=== PATIENT | male | born 1950 | race American Indian/Alaskan Native ===

== ENCOUNTER 2018-02-26 04:49 | Emergency (ER) | payer MEDICARE ==
[2018-02-26 07:49] LABS: Basophils % (Auto) 0.6 % (0.0-1.8); Eosinophils # (Auto) 0.2 K/mm3 (0.0-0.4); Eosinophils % (Auto) 2.8 % (0.0-4.3); Hematocrit 44.1 % (35.5-45.6); Hemoglobin 14.3 gm/dl (11.8-15.2); Lymphocytes # (Auto) 1.7 K/mm3 (1.2-5.4); Lymphocytes % (Auto) 28.6 % (13.4-35.0); Mean Corpuscular HGB Conc 32 % (32-34); Mean Corpuscular Hemoglobin 31 pg (28-32); Mean Corpuscular Volume 96 fl (84-94); Monocytes # (Auto) 0.7 K/mm3 (0.0-0.8); Monocytes % (Auto) 12.1 % (0.0-7.3); Platelet Count 219 K/mm3 (140-440); Red Blood Count 4.59 M/mm3 (3.65-5.03); Red Cell Distribution Width 15.2 % (13.2-15.2)
[2018-02-26 08:04] LABS: Alanine Aminotransferase 14 units/L (7-56); BUN/Creatinine Ratio 32; Blood Urea Nitrogen 29 mg/dL (9-20); Calcium 9.3 mg/dL (8.4-10.2); Hemolysis Index 17
--- NOTE | 2018-02-26 10:49 | Cat Scan Report ---
CT scan of head without IV contrast: History: Syncope and collapse. Findings Ventricles are normal in size and midline the patient. Periventricular areas of low attenuation. No evidence of acute ischemic, hemorrhage or mass. No extra-axial fluid collection. Mild volume loss at the Normals visualized sinuses and mastoid air cells. Impression: No acute intracranial abnormality. Small vessel ischemic changes. Mild volume loss.
[2018-02-26 11:34] LABS: Bilirubin,Urine NEG (Negative); Blood,Urine NEG (Negative); Color,Urine Yellow (Yellow); Mucus,Urine 3+ /HPF; Protein,Urine <15 mg/dL mg/dL (Negative)
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
[2018-02-26 12:16] VITALS: BP 122/76
== END 2018-02-26 12:31 | disposition home or self-care (01) ==
LOC: ED 04:49
DX: R55 Syncope and collapse (principal); R53.1 Weakness; F17.200 Nicotine dependence, unspecified, uncomplicated
CPT/HCPCS: 36415; 70450; 80053; 81001; 85025

== ENCOUNTER 2018-03-15 00:57 | Emergency (ER) | payer MEDICARE ==
[2018-03-15] MEDS ORDERED: MOTRIN PO ONE (07:34)
--- NOTE | 2018-03-15 08:26 | XRay Report ---
Right foot 3 views: History: Pain and swelling. Findings: Generalized osteopenia. No periosteal reaction or lytic lesion. No evidence of fracture. Deformed lateral sesamoid probably related to old injury. Impression: No definite acute findings.
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
[2018-03-15 09:19] LABS: Hematocrit 37.5 % (35.5-45.6); Hemoglobin 11.8 gm/dl (11.8-15.2); Mean Corpuscular HGB Conc 31 % (32-34); Mean Corpuscular Hemoglobin 31 pg (28-32); Mean Corpuscular Volume 98 fl (84-94); Platelet Count 140 K/mm3 (140-440); Red Blood Count 3.83 M/mm3 (3.65-5.03); Red Cell Distribution Width 15.8 % (13.2-15.2)
[2018-03-15 09:20] LABS: Basophils % (Auto) 0.7 % (0.0-1.8); Eosinophils # (Auto) 0.3 K/mm3 (0.0-0.4); Eosinophils % (Auto) 5.3 % (0.0-4.3); Lymphocytes # (Auto) 1.3 K/mm3 (1.2-5.4); Lymphocytes % (Auto) 26.5 % (13.4-35.0); Monocytes # (Auto) 0.5 K/mm3 (0.0-0.8); Monocytes % (Auto) 11.4 % (0.0-7.3)
[2018-03-15 10:32] LABS: BUN/Creatinine Ratio 20; Blood Urea Nitrogen 14 mg/dL (9-20); Calcium 8.3 mg/dL (8.4-10.2); Hemolysis Index 27
[2018-03-15 10:59] VITALS: BP 156/76
== END 2018-03-15 10:59 | disposition home or self-care (01) ==
LOC: ED 00:57
DX: B35.3 Tinea pedis (principal); F17.200 Nicotine dependence, unspecified, uncomplicated
CPT/HCPCS: 36415; 80048; 83880; 85025; 99284

== ENCOUNTER 2018-05-10 16:07 | Emergency (ER) | payer MEDICARE ==
[2018-05-10 16:25] VITALS: BP 145/79
== END 2018-05-10 17:50 | disposition left against medical advice (07) ==
LOC: ED 16:07
DX: S30.1XXA Contusion of abdominal wall, initial encounter (principal); X58.XXXA Exposure to other specified factors, initial encounter; Y93.89 Activity, other specified; Y92.89 Other specified places as the place of occurrence of the external cause; Y99.8 Other external cause status; Z53.21 Procedure and treatment not carried out due to patient leaving prior to being seen by health care provider

== ENCOUNTER 2018-06-20 13:37 | Emergency (ER) | payer MEDICARE ==
[2018-06-20] MEDS ORDERED: NORCO 5/325 PO ONE (19:18)
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
[2018-06-20 20:05] VITALS: BP 128/80
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
== END 2018-06-20 20:03 | disposition home or self-care (01) ==
LOC: ED 13:37
DX: S50.11XA Contusion of right forearm, initial encounter (principal); F17.200 Nicotine dependence, unspecified, uncomplicated; Z79.899 Other long term (current) drug therapy; W22.8XXA Striking against or struck by other objects, initial encounter; Y93.89 Activity, other specified; Y99.8 Other external cause status; Y92.89 Other specified places as the place of occurrence of the external cause
CPT/HCPCS: 99283

== ENCOUNTER 2018-07-18 03:07 | Emergency (ER) | payer MEDICARE ==
--- NOTE | 2018-07-18 06:47 | XRay Report ---
FINAL REPORT EXAM: XR SPINE LUMBOSACRAL 2-3V HISTORY: lower back pain TECHNIQUE: Three views lumbar spine were obtained. FINDINGS: There are 6 [id number] lumbar vertebral bodies. There is disc degeneration at the L4-L5 and L5-L6 levels with endplate spurring. Additional endplate spurring is seen the upper lumbar spine. There no evidence of fracture. The SI joints appear normal. The soft tissues well maintained. IMPRESSION: Disc degeneration in the lower lumbar spine with endplate spurring at multiple levels. No evidence of fracture
--- NOTE | 2018-07-18 06:48 | XRay Report ---
FINAL REPORT EXAM: XR SPINE THORACIC 2V HISTORY: upper back pain TECHNIQUE: AP and lateral views of thoracic spine were obtained. There is generalized osteoporosis. There is mild narrowing of the disc with endplate spurring at multiple levels, particularly at the T11-T12 level. There is no evidence of fracture. The soft tissue lines otherwise well maintained. FINDINGS: As above. IMPRESSION: Osteoporosis with multilevel disc degeneration endplate spurring. No evidence of fracture.
--- NOTE | 2018-07-18 07:48 | Emergency Department Report ---
ED Back Pain/Injury HPI - General Chief Complaint: Back Pain/Injury Stated Complaint: BACK PAIN Source: patient Mode of arrival: Ambulatory Limitations: Other - History of Present Illness Initial Comments: This is a 68-year-old -Honduran male who presents with a broom low back pain. Past medical history legally blind and chronic back pain. Patient reports chronic back pain since 2001 controlled until yesterday. Patient states he was walking down the street and started having severe upper and low back pain. Patient states he had to sit on her and call 911 due to pain. Patient reports pain is 7 out of 10 on pain scale and constant throbbing achy pain. She is worse with movement and improved with immobility. He denies radiating pain, recent injury, fever, erythema, swelling, numbness or tingling. MD Complaint: back pain Onset/Timin -: days(s) Similar Symptoms Previously: Yes Place: street Radiation: none Severity: moderate Severity scale (0 -10): 7 Quality: aching, other (throbbing) Consistency: constant Improves With: immobilization Worsens With: movement, walking Context: unknown Associated Symptoms: denies other symptoms - Related Data Previous Rx's Medication Instructions Recorded Last Taken Type Famotidine [Pepcid] 20 mg PO BID #60 tablet 02/23/18 Unknown Rx levoFLOXacin [Levaquin TAB] 750 mg PO DAILY #3 tablet 02/23/18 Unknown Rx traMADol [Ultram 50 MG tab] 50 mg PO Q6HR PRN #12 tablet 02/23/18 Unknown Rx Clotrimazole 1% [Lotrimin 1%] 15 gm TP BID #2 tube 03/15/18 Unknown Rx Ibuprofen [Motrin] 600 mg PO Q8H PRN #30 tablet 03/15/18 Unknown Rx Acetaminophen [Tylenol Extra 1,000 mg PO QID PRN #30 tablet 06/20/18 Unknown Rx Strength] Diclofenac Potassium 50 mg PO TID #12 tablet 07/18/18 Unknown Rx Allergies Allergy/AdvReac Type Severity Reaction Status Date / Time onion Allergy Swelling Verified 06/20/18 13:49 bellpepper Allergy Swelling Uncoded 06/20/18 13:49 ED Review of Systems ROS: Stated complaint: BACK PAIN Other details as noted in HPI Constitutional: denies: chills, fever Respiratory: denies: cough, shortness of breath, wheezing Cardiovascular: denies: chest pain, palpitations Gastrointestinal: denies: abdominal pain, nausea, diarrhea Genitourinary: denies: urgency, dysuria Musculoskeletal: back pain (upper and low back pain). denies: joint swelling, myalgia Skin: denies: rash, lesions Neurological: denies: headache, weakness, numbness, paresthesias Psychiatric: denies: anxiety, depression ED Past Medical Hx - Past Medical History fatigue, Legally blind Family history: no significant family history ED Back Pain Physical Exam - Exam General: Vital signs noted. No distress. Alert and acting appropriately. Back/Abdomen: Yes Sacroiliac Tenderness (bilateral), No Abdominal Tenderness, No Perithoracic Tenderness, No Perilumbar Tenderness (midline lumbar tenderness) , No Flank Tenderness, No Straight Leg Raise Pain Neuro: Yes Normal Sensation, Yes Normal DTR's, Yes Normal Gait, No Motor Weakness ED Course Vital Signs 07/18/18 03:54 Temperature 97.2 F L Pulse Rate 71 Respiratory 18 Rate Blood Pressure 111/63 O2 Sat by Pulse 99 Oximetry Ed Back Pain Tests - Tests Tests: Abnormal X Rays (osteoporosis, multilevel disc degeneration, and endplate spurring.) ED Medical Decision Making - Radiology Data Radiology results: report reviewed, image reviewed FINAL REPORT EXAM: XR SPINE THORACIC 2V HISTORY: upper back pain TECHNIQUE: AP and lateral views of thoracic spine were obtained. There is generalized osteoporosis. There is mild narrowing of the disc with endplate spurring at multiple levels, particularly at the T11-T12 level. There is no evidence of fracture. The soft tissue lines otherwise well maintained. FINDINGS: As above. IMPRESSION: Osteoporosis with multilevel disc degeneration endplate spurring. No evidence of fracture. EXAM: XR SPINE LUMBOSACRAL 2-3V HISTORY: lower back pain TECHNIQUE: Three views lumbar spine were obtained. FINDINGS: There are 6 jly-syi-copdulp lumbar vertebral bodies. There is disc degeneration at the L4-L5 and L5-L6 levels with endplate spurring. Additional endplate spurring is seen the upper lumbar spine. There no evidence of fracture. The SI joints appear normal. The soft tissues well maintained. IMPRESSION: Disc degeneration in the lower lumbar spine with endplate spurring at multiple levels. No evidence of fracture - Medical Decision Making Patient was examined by me in fast track. Vitals are normal and patient is in no acute distress. Patient given ibuprofen 800 mg by mouth once while in ER. Obtained a x-rays of thoracic and L-spine. X-rays dictated by radiologist and report reviewed by myself. Patient informed of results of osteoporosis, degenerative disc disease with spurring. Start diclofenac's for osteoarthritis. Referral to orthopedics and patient to follow-up with primary care provider for intensive care. Plan discussed with patient to discharge home and treat outpatient. He agrees with ER plan. Patient discharged home in stable condition. Follow up with PCP in 2-3 days. Critical care attestation.: If time is entered above; I have spent that time in minutes in the direct care of this critically ill patient, excluding procedure time. ED Disposition Clinical Impression: Upper back pain Low back pain Qualifiers: Chronicity: acute Back pain laterality: bilateral Sciatica presence: without sciatica Qualified Code(s): M54.5 - Low back pain Osteoporosis Qualifiers: Osteoporosis type: age-related Presence of current pathological fracture: without current pathological fracture Qualified Code(s): M81.0 - Age-related osteoporosis without current pathological fracture Degenerative disk disease Qualifiers: Spinal region: thoracolumbar Qualified Code(s): M51.35 - Other intervertebral disc degeneration, thoracolumbar region Osteoarthritis Qualifiers: Osteoarthritis location: multiple joints Osteoarthritis type: primary Qualified Code(s): M15.0 - Primary generalized (osteo)arthritis Disposition: TO HOME OR SELFCARE Is pt being admited?: No Does the pt Need Aspirin: No Condition: Stable Instructions: Degenerative Disc Disease (ED), Osteoporosis (ED) Additional Instructions: Rest Use ice or heat on affected area for 20 minutes and off for 2 hours. Take pain medication every 6 hours as needed for pain. Start taking daily calcium and vitamin D supplements over the counter. Start daily physical activity such as 30 minutes' walking and avoid high impact exercise such as lifting heavy weights. Start lower salt, maintain adequate dietary protein, and increase intake of fruits and vegetables. Follow up with Primary Care Provider in 2-3 days. Follow-up with orthopedic surgery or pain management. Prescriptions: Diclofenac Potassium 50 mg PO TID #12 tablet Referrals: [facility], [facility] [Provider Group] - 3-5 Days [facility] [Provider Group] - 3-5 Days AZUL AMARO MD [Staff Physician] - 3-5 SARIAH Obrien MD [Staff Physician] - 3-5 Days Time of Disposition: 08:00
[2018-07-18] MEDS ORDERED: MOTRIN PO ONE (08:04)
[2018-07-18 08:21] VITALS: BP 118/60
== END 2018-07-18 08:20 | disposition home or self-care (01) ==
LOC: ED 03:07
DX: M51.35 Other intervertebral disc degeneration, thoracolumbar region (principal); M15.0 Primary generalized (osteo)arthritis; M81.0 Age-related osteoporosis without current pathological fracture; M54.89 Other dorsalgia; Z91.018 Allergy to other foods
CPT/HCPCS: 72070; 72100; 99283

== ENCOUNTER 2019-08-28 22:48 | Emergency (ER) | payer MEDICARE, MEDICAID ==
[2019-08-29 00:47] VITALS: BP 149/85
[2019-08-29] MEDS ORDERED: guaiFENesin 100 MG/5 ML ORAL LIQD PO ONE (05:06)
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
--- NOTE | 2019-08-29 06:13 | XRay Report ---
CHEST 2 VIEWS [id number] INDICATION / CLINICAL INFORMATION: cough COMPARISON: 02/18/2018 FINDINGS: SUPPORT DEVICES: None. HEART / MEDIASTINUM: No significant abnormality. LUNGS / PLEURA: Chronic changes are again seen in the lung bosch. No areas of consolidation are seen . No pneumothorax. ADDITIONAL FINDINGS: No significant additional findings. IMPRESSION: No significant acute abnormality Signer Name: Abraham Alvarez MD Signed: 08/29/2019 6:09 AM Workstation Name: [id number]
== END 2019-08-29 07:05 | disposition home or self-care (01) ==
LOC: ED 22:48
DX: J06.9 Acute upper respiratory infection, unspecified (principal); F17.200 Nicotine dependence, unspecified, uncomplicated; Z79.899 Other long term (current) drug therapy; Z91.018 Allergy to other foods
CPT/HCPCS: 71046

== ENCOUNTER 2019-08-29 22:59 | Emergency (ER) | payer MEDICARE, MEDICAID ==
[2019-08-29 23:06] VITALS: BP 157/85
[2019-08-30 00:25] LABS: Hematocrit 40.2 % (35.5-45.6); Hemoglobin 13.4 gm/dl (11.8-15.2); Mean Corpuscular HGB Conc 33 % (32-34); Mean Corpuscular Volume 94 fl (84-94); Platelet Count 151 K/mm3 (140-440); Red Blood Count 4.29 M/mm3 (3.65-5.03); Red Cell Distribution Width 14.9 % (13.2-15.2)
[2019-08-30 00:43] LABS: BUN/Creatinine Ratio 18; Blood Urea Nitrogen 14 mg/dL (9-20); Calcium 8.8 mg/dL (8.4-10.2); Hemolysis Index 5
[2019-08-30 01:27] LABS: Alanine Aminotransferase 16 units/L (7-56)
[2019-08-30 01:34] LABS: Bilirubin,Direct < 0.2 mg/dL (0-0.2)
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
[2019-08-30 05:25] LABS: Anisocytosis 1+; Basophils % (Manual) 0 % (0.0-1.8); Total Cells Counted 100
[2019-08-30 05:26] LABS: Platelet Estimate Consistent w Auto
== END 2019-08-30 01:48 | disposition home or self-care (01) ==
LOC: ED 22:59
DX: J06.9 Acute upper respiratory infection, unspecified (principal); F17.200 Nicotine dependence, unspecified, uncomplicated
CPT/HCPCS: 36415; 80048; 80076; 83690; 84484; 85007; 85025

== ENCOUNTER 2020-09-22 11:18 | Emergency (ER) | payer MEDICAID, MEDICARE ==
--- NOTE | 2020-09-22 12:25 | Event Note ---
ED Screening Note Date of service: 09/22/20 Time: 12:25 ED Screening Note: This initial assessment/diagnostic orders/clinical plan/treatment(s) is/are subject to change based on patients health status, clinical progression and re- assessment by fellow clinical providers in the ED. Further treatment and workup at subsequent clinical providers discretion. Patient/guardian urged not to elope from the ED as their condition may be serious if not clinically assessed and managed. Initial orders include: basic labs, urinalysis, CT head, chest x-ray
--- NOTE | 2020-09-22 13:03 | XRay Report ---
CHEST 1 VIEW 09/22/2020 12:57 PM INDICATION / CLINICAL INFORMATION: AMS. COMPARISON: Chest 2 views from 08/29/2019. FINDINGS: SUPPORT DEVICES: None. HEART / MEDIASTINUM: No significant abnormality. LUNGS / PLEURA: Biapical scarring is again noted. The lungs are otherwise clear. Significant pleural effusion. No pneumothorax. ADDITIONAL FINDINGS: No significant additional findings. IMPRESSION: 1. No acute abnormality of the chest. Signer Name: Silver Little MD Signed: 09/22/2020 12:58 PM Workstation Name: [id number]
[2020-09-22 13:37] LABS: Hematocrit 40.7 % (35.5-45.6); Hemoglobin 13.3 gm/dl (11.8-15.2); Mean Corpuscular HGB Conc 33 % (32-34); Mean Corpuscular Volume 93 fl (84-94); Red Blood Count 4.39 M/mm3 (3.65-5.03); Red Cell Distribution Width 13.4 % (13.2-15.2)
[2020-09-22 13:44] LABS: Platelet Count 111 K/mm3 (140-440)
[2020-09-22 14:09] LABS: Alanine Aminotransferase 34 units/L (7-56); Albumin 3.3 g/dL (3.9-5); BUN/Creatinine Ratio 23; Blood Urea Nitrogen 18 mg/dL (9-20); Calcium 8.7 mg/dL (8.4-10.2); Hemolysis Index 4
--- NOTE | 2020-09-22 14:29 | Cat Scan Report ---
CT head/brain wo con INDICATION / CLINICAL INFORMATION: 70 years Male; AMS. TECHNIQUE: Routine CT head without contrast. All CT scans at this location are performed using CT dos e reduction for ALARA by means of automated exposure control. COMPARISON: The CT is compared to the previous exam of 02/26/2018. FINDINGS: BRAIN / INTRACRANIAL CONTENTS: The motion degrades the image quality despite repeat imaging. However, there is extensive cerebral white matter disease most consistent with microvascular angiopathy. The findings appear to correlate with the previous CT. There is no clear CT ends of acute intracranial he morrhage. There is continued mild cerebral atrophy with associated prominence of the ventricular syst em. ORBITS: No significant abnormality of visualized orbits. SINUSES / MASTOIDS: No significant abnormality in the visualized paranasal sinuses or mastoid air rosalina ls. CRANIOCERVICAL JUNCTION: No significant abnormality. ADDITIONAL FINDINGS: None. IMPRESSION: 1. There is continued extensive microvascular angiopathy without clear CT evidence of acute intracran ial hemorrhage. Signer Name: José Manuel Carrasco MD Signed: 09/22/2020 2:24 PM Workstation Name: [id number]
[2020-09-22 15:59] LABS: Basophils % (Manual) 0 % (0.0-1.8); RBC Morphology Normal; Total Cells Counted 100
[2020-09-22 16:00] LABS: Platelet Estimate Consistent w Auto
[2020-09-22] MEDS ORDERED: SODIUM CHLORIDE 0.9% 1000 ML 1,000 ML IV ONE (18:29)
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
[2020-09-22 19:00] LABS: Free T4 (Free Thyroxine) 1.47 ng/dL (0.76-1.46)
[2020-09-22 20:13] LABS: Bilirubin,Urine NEG (Negative); Blood,Urine NEG (Negative); Color,Urine Amber (Yellow); Mucus,Urine 3+ /HPF
[2020-09-23 09:08] VITALS: BP 138/79
== END 2020-09-23 21:30 | disposition home or self-care (01) ==
LOC: ED 11:18
DX: R41.82 Altered mental status, unspecified (principal); F17.200 Nicotine dependence, unspecified, uncomplicated; Z98.890 Other specified postprocedural states; Z79.1 Long term (current) use of non-steroidal anti-inflammatories (NSAID); Z79.2 Long term (current) use of antibiotics; Z79.899 Other long term (current) drug therapy; Z91.018 Allergy to other foods
CPT/HCPCS: 36415; 70450; 71045; 80053; 81001; 84439; 84443; 84484; 85007; 85025; 93005; 96360; 96361; 99284; J7030

== ENCOUNTER 2020-10-08 18:32 | Emergency (ER) | payer MEDICARE ==
--- NOTE | 2020-10-08 19:02 | Event Note ---
ED Screening Note ED Screening Note: fall last night states he was going to the bathroom and states he reached to pull himself up by the curtain and fell down states he was feeling SOB before the fall no CP no weakness no numbness no WASHBURN no vision changes no cough no fever No LOC PMHx dementia This initial assessment/diagnostic orders/clinical plan/treatment(s) is/are subject to change based on patients health status, clinical progression and re- assessment by fellow clinical providers in the ED. Further treatment and workup at subsequent clinical providers discretion. Patient/guardian urged not to elope from the ED as their condition may be serious if not clinically assessed and managed. Initial orders include: labs, EKG, CXR, CT
--- NOTE | 2020-10-08 20:26 | XRay Report ---
CHEST 2 VIEWS INDICATION / CLINICAL INFORMATION: SOB. COMPARISON: 09/22/2020 FINDINGS: SUPPORT DEVICES: None. HEART / MEDIASTINUM: No significant abnormality. LUNGS / PLEURA: No significant pulmonary or pleural abnormality. No pneumothorax. ADDITIONAL FINDINGS: No significant additional findings. IMPRESSION: No significant abnormality or interval change from 09/22/2020 Signer Name: Bony Clarke MD FACR Signed: 10/08/2020 8:22 PM Workstation Name: [id number]
[2020-10-08 20:27] LABS: Basophils % (Auto) 0.5 % (0.0-1.8); Eosinophils # (Auto) 0.1 K/mm3 (0.0-0.4); Eosinophils % (Auto) 1.6 % (0.0-4.3); Hemoglobin 11.5 gm/dl (11.8-15.2); Lymphocytes # (Auto) 1.3 K/mm3 (1.2-5.4); Lymphocytes % (Auto) 21.8 % (13.4-35.0); Mean Corpuscular HGB Conc 34 % (32-34); Mean Corpuscular Volume 93 fl (84-94); Monocytes # (Auto) 0.7 K/mm3 (0.0-0.8); Monocytes % (Auto) 12.6 % (0.0-7.3); Platelet Count 168 K/mm3 (140-440); Red Blood Count 3.67 M/mm3 (3.65-5.03); Red Cell Distribution Width 13.9 % (13.2-15.2)
[2020-10-08 20:42] LABS: Alanine Aminotransferase 19 units/L (7-56); Albumin 3.2 g/dL (3.9-5); Blood Urea Nitrogen 15 mg/dL (9-20); Hemolysis Index 26
[2020-10-08 20:56] LABS: BUN/Creatinine Ratio 21
--- NOTE | 2020-10-08 21:58 | Cat Scan Report ---
CT head/brain wo con INDICATION / CLINICAL INFORMATION: 70 years Male; Patient had a fall last night, now with head pain. TECHNIQUE: Routine CT head without contrast. All CT scans at this location are performed using CT dos e reduction for ALARA by means of automated exposure control. COMPARISON: 09/22/2020 FINDINGS: BRAIN / INTRACRANIAL CONTENTS: No acute hemorrhage, mass effect, midline shift, hydrocephalus, or acu te, large territorial infarct. Mild, diffuse cerebral and cerebellar atrophy. There are moderate, somewhat confluent areas of decreased attenuation in the white matter of the cere bral hemispheres, as well as the gangliocapsular regions. These are nonspecific findings and may be r elated to microangiopathy (hypertension, diabetes, atherosclerosis), given the patient's age. CRANIOCERVICAL JUNCTION: No significant abnormality. ORBITS: No significant abnormality of visualized orbits. SINUSES / MASTOIDS: No significant abnormality in the visualized paranasal sinuses or mastoid air rosalina ls. 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 IMPRESSION: 1. No focal mass, hemorrhage, hydrocephalus, or acute, large territorial infarct. Signer Name: Gus Carmen MD, III Signed: 10/08/2020 9:53 PM Workstation Name: [email or web address] [id number]
--- NOTE | 2020-10-08 22:01 | Cat Scan Report ---
CT cervical spine wo con INDICATION / CLINICAL INFORMATION: 70 years Male; Patient had a fall last night, now with neck pain. TECHNIQUE: Axial CT images of the cervical spine were obtained. Sagittal and coronal reformatted images were pr oduced. All CT scans at this location are performed using CT dose reduction for ALARA by means of aut omated exposure control. COMPARISON: 04/10/2017 FINDINGS: POST-SURGICAL CHANGES: None. ALIGNMENT: No significant abnormality. VERTEBRAE: No signs of fracture. Vertebral bodies are grossly normal in height throughout. Mild to moderate osseous foraminal narrowing is seen in the left at C3-4 from uncinate hypertrophy. S imilar findings seen on the right, as well as prior exam. INTRAVERTEBRAL DISCS: Disc space narrowing seen at C3-4. Mild disc disease seen at this level, as wel l as C4-5 and C5-6. There is encroachment upon the cervical cord. No significant canal stenosis appre ciated. PARASPINAL SOFT TISSUES: No significant abnormality. ADDITIONAL FINDINGS: Scarring type changes seen in the lung apices bilaterally. Similar findings seen on prior. IMPRESSION: 1. No signs of acute bony trauma to the cervical spine. Signer Name: Gus Carmen MD, III Signed: 10/08/2020 9:57 PM Workstation Name: [id number]
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
[2020-10-09 16:50] VITALS: BP 129/87
[2020-10-10] MEDS ORDERED: HYDROcodone/ACETAMINOPHEN 5-325 MG TAB PO ONE (00:26)
== END 2020-10-09 02:09 | disposition home or self-care (01) ==
LOC: ED 18:32
DX: S09.90XA Unspecified injury of head, initial encounter (principal); Z79.1 Long term (current) use of non-steroidal anti-inflammatories (NSAID); Z79.899 Other long term (current) drug therapy; Z88.8 Allergy status to other drugs, medicaments and biological substances; W01.0XXA Fall on same level from slipping, tripping and stumbling without subsequent striking against object, initial encounter; Y93.89 Activity, other specified; Y92.89 Other specified places as the place of occurrence of the external cause; Y99.8 Other external cause status
CPT/HCPCS: 36415; 70450; 71046; 72125; 80053; 83880; 84484; 85025; 93005